=== PATIENT | female | born 1990 | race Caucasian/White ===

== ENCOUNTER 2024-04-07 09:05 | Emergency (ER) | payer OTHER ==
[~2024-04-07] VITALS: Ht 160 cm; Wt 54.4 kg
[2024-04-07 09:05] VITALS: BP 110/72; TEMP 98.4; O2SAT 98
== END 2024-04-07 10:05 | disposition left against medical advice (07) ==
LOC: ER 09:05
DX: J02.9 Acute pharyngitis, unspecified (principal); Z53.21 Procedure and treatment not carried out due to patient leaving prior to being seen by health care provider